=== PATIENT | male | born 1940 | race Caucasian/White ===

== ENCOUNTER 2021-05-04 10:21 | Emergency (ER) | payer MEDICARE ==
[~2021-05-04] VITALS: Ht 188 cm; Wt 96.4 kg
[2021-05-04 10:39] VITALS: BP 143/81
[2021-05-04 11:05] LABS: BASOPHILS # (AUTO) 0.1 X10'3 (0-0.2); BASOPHILS % (AUTO) 0.8 % (0-1); EOSINOPHILS # (AUTO) 0.1 X10'3 (0-0.9); EOSINOPHILS % (AUTO) 0.6 % (0-6); HEMATOCRIT 46.6 % (42.0-52.0); HEMOGLOBIN 15.5 g/dl (14.0-17.9); LYMPHOCYTES # (AUTO) 2.8 X10'3 (1.1-4.8); MEAN CORPUSCULAR HEMOGLOBIN 30.2 PG (27.0-31.0); MEAN CORPUSCULAR HGB CONC 33.3 g/dL (33.0-36.5); MEAN CORPUSCULAR VOLUME 90.9 FL (78-98); MEAN PLATELET VOLUME 9.5 FL (7.4-10.4); MONOCYTES # (AUTO) 0.7 X10'3 (0-0.9); MONOCYTES % (AUTO) 7.4 % (2-12); NEUTROPHILS % (AUTO) 62.2 % (42-75); PLATELET COUNT 212 X10'3 (140-440); RED BLOOD COUNT 5.13 X10'6 (4.70-6.10); RED CELL DISTRIBUTION WIDTH 13.2 % (11.5-14.5); WHITE BLOOD COUNT 9.7 X10'3 (4.5-11.0)
[2021-05-04 11:18] LABS: ANION GAP 9 (8-16); CHLORIDE 104 MMOL/L (99-107); GLUCOSE 304 MG/DL (70-104); POTASSIUM 4.6 MMOL/L (3.5-5.1); SODIUM 140 MMOL/L (135-145); TOTAL CARBON DIOXIDE 27.4 MMOL/L (24-32)
[2021-05-04 11:19] LABS: ALANINE AMINOTRANSFERASE 29 U/L (12-78); ALBUMIN 4.1 G/DL (3.4-5.0); ALBUMIN/GLOBULIN RATIO 1.1 (1.1-1.5); ALKALINE PHOSPHATASE 101 IU/L (46-116); ASPARTATE AMINO TRANSFERASE 15 U/L (10-37); BILIRUBIN,TOTAL 0.6 MG/DL (0.1-1.0); BLOOD UREA NITROGEN 18 MG/DL (7-18); BUN/CREATININE RATIO 15.8 (5.4-32.0); CALCIUM 9.8 MG/DL (8.5-10.1); CREATININE 1.14 MG/DL (0.60-1.10); eGFR 62 ML/MIN
[2021-05-04] MEDS ORDERED: LIDOcaine 2% 10ml TOPICAL JELLY (Urojet) MM ONE (14:15)
== END 2021-05-04 14:46 | disposition home or self-care (01) ==
LOC: ER 10:21
DX: K56.41 Fecal impaction (principal); K64.4 Residual hemorrhoidal skin tags
CPT/HCPCS: 36415; 74018; 80053; 85025; 86885; 86900; 86901; 99284

== ENCOUNTER 2023-12-14 00:49 | Emergency (ER) | payer MEDICARE ==
[~2023-12-14] VITALS: Ht 190.5 cm; Wt 100.0 kg
[2023-12-14] MEDS ORDERED: ketorolac trometh. 30mg/ml inj. IM ONE (02:55)
[2023-12-14] MEDS ORDERED: IBUP-1985 PO (03:04)
[2023-12-14] MEDS ORDERED: COLC0.6C3 PO (03:04)
[2023-12-14] MEDS ORDERED: CEPH-585 PO (03:04)
[2023-12-14] MEDS ORDERED: ACET-1025 PO (03:04)
[2023-12-14] MEDS: ondansetron 4mg rapidly disintigrating tab PO ONE (03:07)
[2023-12-14] MEDS: acetaminophen 325mg tablet PO ONE (03:07)
[2023-12-14] MEDS: cephalexin 250mg capsule PO ONE (03:07)
[2023-12-14] MEDS: triamcinolone acetonide 40mg/ml inj IM ONE (03:08)
[2023-12-14] MEDS: ketorolac tromethamine 15mg/ml inj. IM ONE (03:23)
[2023-12-14 03:28] VITALS: BP 128/64; PULSE 79; RESP 18; TEMP 98.2; O2SAT 95
== END 2023-12-14 03:30 | disposition home or self-care (01) ==
LOC: ER 00:50
DX: M10.9 Gout, unspecified (principal)
CPT/HCPCS: 73130; 96372; 99284; J1885; J3301